=== PATIENT | female | born 1930 | race Caucasian/White ===

== ENCOUNTER 2016-11-02 22:09 | Emergency (ER) | payer MEDICARE, MEDICAID ==
--- NOTE | 2016-11-02 23:02 | ED ---
Parag Gonzalez Rebecca, scribed for Lei Ji MD on 11/02/16 at 2223 . Altered Mental Status - HPI Summary HPI Summary: Pt is an 86 y/o F BIBA who comes to ED p/w decreased responsiveness and confusion. Per EMS, pt is typically high functioning and AxO x3. Today while at her senior living, [facility], they were unable to rouse her at dinner so they put her to bed. Later on she ocntinued to be unresponsive, so she was sent to ED. PMHx dementia. Level 5 caveat due to AMS/dementia. - History Of Current Complaint Stated Complaint: AMS Time Seen by Provider: 11/02/16 22:18 Hx Obtained From: EMS Hx From Patient Unobtainable Due To: Dementia Onset/Duration: Still Present Character: Responsiveness - Allergies/Home Medications Allergies/Adverse Reactions: Allergies Allergy/AdvReac Type Severity Reaction Status Date / Time Amlodipine [From Norvasc] Allergy Unknown Verified 11/26/14 06:47 Reaction Details Fish Oil Allergy Unknown Verified 11/26/14 06:47 Reaction Details Lisinopril [From Zestril] Allergy Unknown Verified 11/26/14 06:47 Reaction Details Rosuvastatin [From Crestor] Allergy Unknown Verified 11/26/14 06:47 Reaction Details Simvastatin [From Zocor] Allergy Unknown Verified 11/26/14 06:47 Reaction Details PMH/Surg Hx/FS Hx/Imm Hx Cardiovascular History: Reports: Hx Hypertension GI History: Reports: Hx Gastroesophageal Reflux Disease Sensory History: Reports: Hx Contacts or Glasses - glasses not here, Hx Hearing Problem Opthamlomology History: Reports: Hx Contacts or Glasses - glasses not here Neurological History: Reports: Hx Dementia, Hx Transient Ischemic Attacks (TIA) - Family History Known Family History: Positive: Unknown - Unable to obtain due to AMS/dementia - Social History Lives: At [facility] Alcohol Use: None Substance Use Type: Reports: None Smoking Status (MU): Former Smoker Have You Smoked in the Last Year: No Review of Systems - ROS Summary Review of Systems Summary: Level 5 caveat due to AMS/Dementia Neurological: Other - Decreased responsiveness All Other Systems Reviewed And Are Negative: No Physical Exam Triage Information Reviewed: Yes Vital Signs On Initial Exam: Initial Vitals Temp Pulse Resp BP Pulse Ox 98.6 F 78 12 158/73 99 11/02/16 22:10 11/02/16 22:10 11/02/16 22:10 11/02/16 22:10 11/02/16 22:10 Vital Signs Reviewed: Yes Completion Of Physical Exam Limited Due To: Dementia Appearance: Positive: No Pain Distress, Thin Skin: Positive: Warm Eyes: Positive: OSCAR ENT: Positive: Hearing grossly normal Neck: Positive: Supple Respiratory/Lung Sounds: Positive: Breath Sounds Present Cardiovascular: Positive: RRR Abdomen Description: Positive: Nontender, Soft Neurological: Positive: Sensory/Motor Intact Diagnostics - Vital Signs Vital Signs Temp Pulse Resp BP Pulse Ox 11/02/16 22:10 98.6 F 78 12 158/73 99 - Laboratory Result Diagrams: 11/02/16 22:40 11/02/16 22:40 Lab Statement: Any lab studies that have been ordered have been reviewed, and results considered in the medical decision making process. - Radiology No standard instances Xray Interpretation: No Acute Changes - No acute cardiopulmonary disease Radiology Interpretation Completed By: ED Physician - CT Brain CT CT Interpretation: No Acute Changes - No CT evidence of acute infarct, hemorrhage, or mass effect. Confluent periventricular and patchy subcortical white matter hypoattenuations seen. These are nonspecific and can be seen in the setting of chronic microvascular ichemic changes. 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 No acute fracture. CT Interpretation Completed By: Radiologist - EKG 2211 Cardiac Rate: NL - 72 bpm EKG Rhythm: Sinus Rhythm - normal EKG Interpretation: Incomplete LBBB Altered Mental Statu Course/Dx - Course Assessment/Plan: Pt is an 86 y/o F BIBA who comes to ED p/w decreased resopnsiveness and confusion. CXR reveals no acute cardiopulmonary disease. EKG reveals incomplete LBBB. Pt will be d/c back to her senior living with a dx of AMS. - Diagnoses Discharge Diagnoses: Altered mental status Discharge - Discharge Plan Condition: Stable Disposition: HOME Patient Education Materials: Altered Mental Status (ED) The documentation as recorded by the Parag mckeon Rebecca accurately reflects the service I personally performed and the decisions made by , Lei Ji MD.
[2016-11-02 23:14] LABS: Hematocrit 37 % (35-47); Hemoglobin 12.3 g/dl (12.0-16.0); Mean Corpuscular HGB Conc 33 g/dl (31-36); Mean Corpuscular Hemoglobin 30 pg (27-31); Mean Corpuscular Volume 90 fL (80-97); Mean Platelet Volume 10 um3 (7.4-10.4); Red Blood Count 4.09 10^6/ul (4.0-5.4); Red Cell Distribution Width 15 % (10.5-15)
[2016-11-03 00:21] LABS: BUN/Creatinine Ratio 19.9 (8-20); Calcium 9.2 mg/dL (8.6-10.3); EGFR African American 45.6 (>60); EGFR Non-African American 35.4 (>60); Potassium 4.3 mmol/L (3.5-5.0)
[2016-11-03 03:19] VITALS: BP 152/82
--- NOTE | 2016-11-03 07:43 | RAD ---
INDICATION: Fever COMPARISON: November 26, 2014 TECHNIQUE: An AP portable view obtained at 2334 hours is submitted. FINDINGS: Bones/Soft Tissues: There are no acute bony findings. Cardiomediastinal: The cardiac silhouette is slightly more prominent and is top normal in size. Lungs: There is diffuse interstitial infiltrative change which is mildly progressive and suggests development of interstitial edema. There is some mild underlying chronic interstitial change as well. Given these diffuse abnormalities, coexistent infectious infiltrates are not excluded radiographically.. Pleura: There are no pleural effusions. Other: None IMPRESSION: SUSPECT INTERVAL DEVELOPMENT OF INTERSTITIAL EDEMA PERHAPS SUPERIMPOSED ON CHRONIC CHANGE.
--- NOTE | 2016-11-03 07:49 | RAD ---
INDICATION: 86-year-old. Alteration in mental status. COMPARISON: None TECHNIQUE: Noncontrast axial source images were acquired from the skull base to the vertex. FINDINGS: Ventricles/sulci: There is advanced cortical atrophy with compensatory dilatation of the CSF spaces. Brain parenchyma: There is extensive periventricular and subcortical white matter change compatible with chronic ischemia. Intracranial hemorrhage:None. Extra-axial spaces: There are no abnormal extra axial fluid collections or evidence of extra-axial mass. Calvarium: There is no calvarial fracture or other calvarial abnormality. Scalp: There is no evidence of scalp or extracalvarial soft tissue abnormality. Paranasal sinuses/mastoid: The paranasal sinuses and mastoid air cells are clear. Other: None. IMPRESSION: CORTICAL ATROPHY WITH CHRONIC MICROVASCULAR ISCHEMIC CHANGES. NO ACUTE FINDINGS.
== END 2016-11-03 02:41 | disposition home or self-care (01) ==
LOC: ED 22:09
DX: R41.82 Altered mental status, unspecified (principal); R41.0 Disorientation, unspecified; F03.90 Unspecified dementia, unspecified severity, without behavioral disturbance, psychotic disturbance, mood disturbance, and anxiety; Z87.891 Personal history of nicotine dependence
CPT/HCPCS: 36415; 70450; 71010; 80048; 81003; 85025; 93005; 99282